=== PATIENT | female | born 1990 | race Caucasian/White ===

== ENCOUNTER 2017-06-01 20:05 | Emergency (ER) | payer OTHER ==
[~2017-06-01] VITALS: Ht 154.9 cm; Wt 69.8 kg
[~2017-06-01 20:05] MED LIST: ALBU90OI INH; ALBU90OI6 INH; ALPR.5 PO; BENZ2 PO; Bactrim Ds Tab1 EACH PO; CEPH500 PO; CYCL10 PO; Flonase 0.05% N16 GM; GABA100 PO; GABA600 PO; GABA800 PO; Garlic1 EAC1 PO; HALO5 PO; IBUP800 PO; KETO10 PO; LAMO100 PO; LATUDA120 MG PO; LATUDA20 MG PO; METF500 PO; MULTIVITAMINS1 EACH PO; MULVITMIND PO; Multivitamin1 EAC1 PO; NAPR500; NAPR500 PO; Naprosyn500 MG PO; OXCA150 PO; OXCA300 PO; PROM25 PO; PROP10 PO; QUET100 PO; TRAZ150T57; TRAZ150T57 PO; TRAZ50 PO; Xanax0.5 MG PO; [UNRECOGNIZED DRUG - REMARK]
[2017-06-01] MEDS ORDERED: Mobic15 MG PO (21:23)
[2017-08-27] MEDS ORDERED: GABA600 PO (17:27)
[2017-08-27] MEDS ORDERED: OXCA150 PO (17:36)
[2017-08-27] MEDS ORDERED: METF500 PO (17:37)
[2017-08-27] MEDS ORDERED: PROP10 PO (17:37)
[2017-08-27] MEDS ORDERED: ALPR.5 (17:37)
[2017-08-27] MEDS ORDERED: QUET200 PO (17:38)
[2017-08-27] MEDS ORDERED: QUET100 PO (17:38)
[2017-08-27] MEDS ORDERED: LATUDA120 MG PO (17:39)
[2017-08-27] MEDS ORDERED: MONT10T PO (17:39)
[2017-08-27] MEDS ORDERED: Flonase 0.05% N16 GM (17:40)
[2017-08-27] MEDS ORDERED: SUMA25 PO (17:40)
[2017-08-27] MEDS ORDERED: Aspir 8181 MG PO (18:55)
== END 2017-06-01 21:36 | disposition home or self-care (01) ==
LOC: ER 20:05
DX: G43.909 Migraine, unspecified, not intractable, without status migrainosus (principal); R09.1 Pleurisy; Z88.1 Allergy status to other antibiotic agents; Z88.8 Allergy status to other drugs, medicaments and biological substances; Z79.899 Other long term (current) drug therapy; Z79.84 Long term (current) use of oral hypoglycemic drugs; J45.909 Unspecified asthma, uncomplicated; F31.9 Bipolar disorder, unspecified
CPT/HCPCS: 96372; 99283; J1100; J1200; J1885; J2765

== ENCOUNTER 2017-07-16 05:27 | Emergency (ER) | payer OTHER ==
[~2017-07-16] VITALS: Ht 157.5 cm; Wt 72.6 kg
[~2017-07-16 05:27] MED LIST changes: +Mobic15 MG PO
[2017-07-16] MEDS ORDERED: Zofran Odt4 MG SL (06:22)
[2017-08-27] MEDS ORDERED: GABA600 PO (17:27)
[2017-08-27] MEDS ORDERED: OXCA150 PO (17:36)
[2017-08-27] MEDS ORDERED: METF500 PO (17:37)
[2017-08-27] MEDS ORDERED: ALPR.5 (17:37)
[2017-08-27] MEDS ORDERED: PROP10 PO (17:37)
[2017-08-27] MEDS ORDERED: QUET100 PO (17:38)
[2017-08-27] MEDS ORDERED: QUET200 PO (17:38)
[2017-08-27] MEDS ORDERED: LATUDA120 MG PO (17:39)
[2017-08-27] MEDS ORDERED: MONT10T PO (17:39)
[2017-08-27] MEDS ORDERED: SUMA25 PO (17:40)
[2017-08-27] MEDS ORDERED: Flonase 0.05% N16 GM (17:40)
[2017-08-27] MEDS ORDERED: Aspir 8181 MG PO (18:55)
== END 2017-07-16 06:49 | disposition home or self-care (01) ==
LOC: ER 05:27
DX: R11.2 Nausea with vomiting, unspecified (principal); M79.7 Fibromyalgia; F31.9 Bipolar disorder, unspecified; M32.9 Systemic lupus erythematosus, unspecified; J45.909 Unspecified asthma, uncomplicated; Z88.1 Allergy status to other antibiotic agents; Z88.8 Allergy status to other drugs, medicaments and biological substances; Z79.899 Other long term (current) drug therapy; Z79.84 Long term (current) use of oral hypoglycemic drugs
CPT/HCPCS: 96372; 99283; J1885; J2550

== ENCOUNTER → 2017-08-12 | Outpatient (CLI) | payer OTHER ==
[~2017-08-12] MED LIST changes: +Zofran Odt4 MG SL
== END | disposition home or self-care (01) ==
LOC: LAB SHORT 12:26 → LAB EV 12:26
DX: J02.9 Acute pharyngitis, unspecified (principal)
CPT/HCPCS: 87070